=== PATIENT | female | born 1965 | race Caucasian/White ===

== ENCOUNTER → 2017-06-20 | Outpatient (CLI) | payer OTHER ==
[~2017-06-20] MED LIST: ASPIRIN EC81 M1; BIRTH CONTROL; CALCIUM 500 WI1 EAC3; CLARITIN10 MG PO; LIPITOR40 MG PO; LISINOPRIL5 MG PO; LOPID600 MG PO; MEDROL DOSPAK21 TA1 PO; MOBIC15 MG PO; MULTIVITAMIN; OMEGA 3-6-9 CO1 EACH; PRILOSEC40 MG PO; SEE COMMENTS; VERAPAMIL E.R240 M1 PO; VITAMIN D3400 UNI1; ZANTAC 150MG T150 M1 PO
== END ==
LOC: M.CT 08:18
DX: K57.30 Diverticulosis of large intestine without perforation or abscess without bleeding (principal); K76.0 Fatty (change of) liver, not elsewhere classified; K44.9 Diaphragmatic hernia without obstruction or gangrene; K42.9 Umbilical hernia without obstruction or gangrene; J98.11 Atelectasis

== ENCOUNTER → 2018-01-30 | Outpatient (CLI) | payer OTHER | LOC: M.RAD 11:24 | DX: M47.894 Other spondylosis, thoracic region (principal); M43.17 Spondylolisthesis, lumbosacral region; M54.5 Low back pain; G89.29 Other chronic pain ==

== ENCOUNTER → 2018-12-11 | Outpatient (CLI) | payer OTHER | LOC: M.RAD 14:19 | DX: Z00.00 Encounter for general adult medical examination without abnormal findings (principal) ==

== ENCOUNTER → 2019-08-17 | Outpatient (CLI) | payer BC ==
[2019-08-17 10:28] LABS: CALCIUM 9.2 mg/dL (8.5-10.1); POTASSIUM 4.3 mmol/L (3.5-5.1)
== END ==
LOC: M.CT 07-12 08:30
PROVIDERS: Registered Nurse Diabetes Educator
DX: K57.30 Diverticulosis of large intestine without perforation or abscess without bleeding (principal)

== ENCOUNTER → 2020-02-28 | Outpatient (CLI) | payer BC | LOC: M.RAD 08:31 | PROVIDERS: ATTEND Registered Nurse Diabetes Educator | DX: M25.511 Pain in right shoulder (principal); G89.29 Other chronic pain; Z00.00 Encounter for general adult medical examination without abnormal findings ==

== ENCOUNTER → 2020-07-25 | Outpatient (CLI) | payer OTHER | LOC: M.MRI 10:57 | PROVIDERS: ATTEND Registered Nurse Diabetes Educator | DX: S43.431A Superior glenoid labrum lesion of right shoulder, initial encounter (principal); M19.011 Primary osteoarthritis, right shoulder; M25.411 Effusion, right shoulder; X58.XXXA Exposure to other specified factors, initial encounter; Y93.89 Activity, other specified; Y92.89 Other specified places as the place of occurrence of the external cause; Y99.8 Other external cause status ==